=== PATIENT | female | born 1935 | race Asian ===

== ENCOUNTER 2016-11-01 14:51 | Emergency (ER) | payer OTHER, MEDICARE ==
[~2016-11-01] VITALS: Ht 152.4 cm; Wt 59.5 kg
[~2016-11-01 14:51] MED LIST: BONI150T PO; LEVO.075 PO; TAB-TAB PO; TRAM50TA PO
[2016-11-01 15:10] VITALS: BP 134/70; PULSE 77; RESP 16; TEMP 98.8; O2SAT 95
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
[2016-11-01] MEDS ORDERED: LEVO.075 PO (15:37)
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
[2016-11-01] MEDS ORDERED: NAPR500T PO (16:40)
[2016-11-01] MEDS ORDERED: BACL10TA PO (16:40)
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
== END 2016-11-01 17:44 | disposition home or self-care (01) ==
LOC: PHEFT 14:51
DX: S16.1XXA Strain of muscle, fascia and tendon at neck level, initial encounter (principal); R51 Headache; R91.1 Solitary pulmonary nodule; V49.40XA Driver injured in collision with unspecified motor vehicles in traffic accident, initial encounter
CPT/HCPCS: 70450; 72072; 72125; 99284; L0150